=== PATIENT | male | born 1975 | race Caucasian/White ===

== ENCOUNTER 2017-02-22 16:35 | Emergency (ER) | payer BC ==
[2017-02-22] MEDS ORDERED: NS 0.9% 1000 ML* 1,000 ML IV ONE (19:40)
--- NOTE | 2017-02-22 20:22 | ED ---
Chacorta Marquez Billy, scribed for Clayton Carlson MD on 02/22/17 at 1937 . Abdominal Pain/Male - HPI Summary HPI Summary: This patient is a 41 year-old male coming to [facility] for evaluation of intermittent RLQ pain since 1430 today. He states that the pain began suddenly after a BM, and is worse with walking. Pain radiated from the RLQ to the groin. He states that the last episode of pain was at 1800, and that it has improved significantly since then. Patient also states that he felt like he had to urinate today but was not urinating as much as usual. He denies history of kidney stones. PSHx is significant for appendectomy in 2010. - History of Current Complaint Chief Complaint: EDAbdPain Stated Complaint: ABD PAIN Time Seen by Provider: 02/22/17 19:32 Hx Obtained From: Patient Onset/Duration: Sudden Onset, Lasting Hours Timing: Intermittent Severity Initially: Moderate Severity Currently: Moderate Pain Intensity: 7 Pain Scale Used: 0-10 Numeric Location: Discrete At: RLQ Radiates: Yes Radiates to: Other - Groin Aggravating Factor(s): Other: - Walking Alleviating Factor(s): Nothing Associated Signs And Symptoms: Positive: Urinary Symptoms. Negative: Nausea, Vomiting, Diarrhea - Allergies/Home Medications Allergies/Adverse Reactions: Allergies Allergy/AdvReac Type Severity Reaction Status Date / Time No Known Allergies Allergy Verified 03/08/13 07:23 PMH/Surg Hx/FS Hx/Imm Hx GI History: Reports: Other GI Disorders - Appendicitis History: Denies: Hx Kidney Stones Sensory History: Denies: Hx Deafness - Surgical History Surgery Procedure, Year, and Place: appendectomy 2011 Infectious Disease History: Denies: Traveled Outside the [place] in Last 30 Days - Family History Family History: There is no family history of IBS. - Social History Alcohol Use: Occasionally Hx Substance Use: No Substance Use Type: Reports: None Hx Tobacco Use: No Smoking Status (MU): Never Smoked Tobacco Review of Systems Negative: Fever Positive: Abdominal Pain. Negative: Vomiting, Diarrhea, Nausea Genitourinary: Other - See HPI All Other Systems Reviewed And Are Negative: Yes Physical Exam Triage Information Reviewed: Yes Vital Signs On Initial Exam: Initial Vitals Temp Pulse Resp BP Pulse Ox 98.1 F 53 18 155/96 100 02/22/17 16:40 02/22/17 16:40 02/22/17 16:40 02/22/17 16:40 02/22/17 16:40 Vital Signs Reviewed: Yes Appearance: Positive: Well-Appearing, Pain Distress - moderate discomfort Skin: Positive: Warm Head/Face: Positive: Normal Head/Face Inspection Eyes: Positive: CRISS ENT: Positive: Hearing grossly normal Neck: Positive: Supple Respiratory/Lung Sounds: Positive: Clear to Auscultation, Breath Sounds Present Cardiovascular: Positive: RRR Abdomen Description: Positive: Nontender, No Organomegaly, Soft. Negative: CVA Tenderness (R), CVA Tenderness (L) Bowel Sounds: Positive: Present Musculoskeletal: Positive: Strength/ROM Intact Neurological: Positive: Sensory/Motor Intact, Alert, Oriented to Person Place, Time Psychiatric: Positive: Affect/Mood Appropriate Diagnostics - Vital Signs Vital Signs Temp Pulse Resp BP Pulse Ox 02/22/17 16:40 98.1 F 53 18 155/96 100 - Laboratory Result Diagrams: 02/22/17 20:08 02/22/17 20:08 Lab Statement: Any lab studies that have been ordered have been reviewed, and results considered in the medical decision making process. - CT abd/pel CT Interpretation Completed By: Radiologist - 1. THERE IS A 2.5 X 5 MM CALCULUS IN THE DISTAL RIGHT URETER CAUSING [id number] HYDRONEPHROSIS. 2. HEPATIC STEATOSIS. Re-Evaluation - Re-Evaluation First Eval Change: Improved Abdominal Pain Fem Course/Dx - Diagnoses Provider Diagnoses: Renal colic Discharge - Discharge Plan Condition: Improved Disposition: HOME Prescriptions: Tamsulosin CAP* [Flomax CAP*] 0.4 mg PO DAILY #7 cap Patient Education Materials: Renal Colic (ED) Referrals: [facility] [Outside] Buck Meadows MD [Medical Doctor] - The documentation as recorded by the Chacorta phillips Billy accurately reflects the service I personally performed and the decisions made by me, Clayton Carlson MD.
--- NOTE | 2017-02-22 20:28 | RAD ---
INDICATION: Right-sided abdominal pain. History of prior appendectomy. COMPARISON: Comparison is made with a prior CT of the abdomen and pelvis from May 23, 2011. TECHNIQUE: A CT scan of the abdomen and pelvis was performed without intravenous or oral contrast. Contiguous axial sections were obtained from the lung bases through the symphysis pubis. Images were reconstructed in the coronal and sagittal planes. FINDINGS: There is minimal subsegmental atelectasis at the right lung base. No pleural effusion is present. The liver and spleen are normal in size. There is fatty infiltration of the liver with relative sparing of the left hepatic lobe. No other focal abnormalities are seen. The gallbladder appears contracted. No calcified gallstones are noted. The pancreas appears to be within normal limits. The adrenal glands and kidneys are normal in size. No renal calculi are seen. There is dilatation of the right renal calyces pelvis and ureter to the level of a 2.5 x 5.0 mm calculus in the distal right ureter just proximal to ureterovesical junction. This is causing mild to moderate hydronephrosis. The aorta is normal in caliber without significant calcific plaque. No significant enlarged retroperitoneal lymph nodes are seen. The stomach, small and large bowel appear nondistended. There is debris within the stomach. Surgical clips are noted along the medial aspect of the cecum consistent with the patient's history of a prior appendectomy. There is no evidence for diverticulitis or colitis. No free intraperitoneal air or fluid is seen. No significant focal osseous abnormality is seen. IMPRESSION: 1. THERE IS A 2.5 X 5 MM CALCULUS IN THE DISTAL RIGHT URETER CAUSING [id number] HYDRONEPHROSIS. 2. HEPATIC STEATOSIS.
[2017-02-22 20:52] LABS: Hematocrit 45 % (42-52); Hemoglobin 15.1 g/dl (14.0-18.0); Mean Corpuscular HGB Conc 34 g/dl (31-36); Mean Corpuscular Hemoglobin 29 pg (27-31); Mean Corpuscular Volume 85 fL (80-94); Mean Platelet Volume 8 um3 (7.4-10.4); Red Blood Count 5.26 10^6/ul (4.0-5.4); Red Cell Distribution Width 14 % (10.5-15); White Blood Count 10.9 10^3/ul (3.5-10.8)
[2017-02-22] MEDS ORDERED: Tamsulosin CAP* 0.4 MG PO ONE (21:04)
[2017-02-22 21:09] VITALS: BP 131/73
[2017-02-22 21:09] LABS: Albumin 4.1 g/dL (3.2-5.2); BUN/Creatinine Ratio 15.3 (8-20); C Reactive Protein 1.4 mg/L (< 5.00); Calcium 9.3 mg/dL (8.6-10.3); EGFR African American 87.5 (>60); Globulin 2.6 g/dL (2-4); Magnesium 2.2 mg/dL (1.9-2.7); Potassium 3.7 mmol/L (3.5-5.0); Total Bilirubin 0.6 mg/dL (0.2-1.0); Total Protein 6.7 g/dL (6.4-8.9)
== END 2017-02-22 21:40 | disposition home or self-care (01) ==
LOC: ED 16:35
DX: N23 Unspecified renal colic (principal); R10.31 Right lower quadrant pain
CPT/HCPCS: 36415; 74176; 80053; 83605; 83690; 83735; 85025; 86140; 99283

== ENCOUNTER 2017-04-21 08:45 | Emergency (ER) | payer BC ==
[2017-04-21 09:08] VITALS: BP 122/79
--- NOTE | 2017-04-21 09:16 | UC ---
Lower Extremity/Ankle HPI - HPI Summary HPI Summary: 42 YO MALE WITH LEFT SECOND TOE PAIN AFTER AVOIDING A HORSE JAMMED TOE NOW BRUISED AND PAINFUL WITH WT BEARING - History of Current Complaint Chief Complaint: UCLowerExtremity Stated Complaint: TOE INJURY Time Seen by Provider: 04/21/17 09:01 Hx Obtained From: Patient Onset/Duration: Sudden Onset Severity Initially: Moderate Severity Currently: Mild Pain Intensity: 4 Pain Scale Used: 0-10 Numeric Aggravating Factor(s): Ambulation Alleviating Factor(s): Rest, Elevation Able to Bear Weight: Yes - Allergies/Home Medications Allergies/Adverse Reactions: Allergies Allergy/AdvReac Type Severity Reaction Status Date / Time No Known Allergies Allergy Verified 03/08/13 07:23 Home Medications: Home Medications Cetirizine* [ZyrTEC 10 MG TAB*] 10 mg PO DAILY 04/21/17 [History Confirmed 04/21] PMH/Surg Hx/FS Hx/Imm Hx Previously Healthy: Yes GI/ History: Kidney Stones - Surgical History Surgical History: Yes Surgery Procedure, Year, and Place: appendectomy 2010 - Family History Known Family History: Positive: Other - NO FHx OF KIDNEY STONES Negative: Cardiac Disease, Hypertension, Diabetes Family History: There is no family history of IBS. - Social History Alcohol Use: Occasionally Substance Use Type: None Smoking Status (MU): Never Smoked Tobacco Review of Systems Constitutional: Negative Skin: Bruising Eyes: Negative ENT: Negative Respiratory: Negative Cardiovascular: Negative Gastrointestinal: Negative Genitourinary: Negative Motor: Negative Neurovascular: Negative Musculoskeletal: Arthralgia Neurological: Negative Psychological: Negative All Other Systems Reviewed And Are Negative: Yes Physical Exam Triage Information Reviewed: Yes Appearance: Well-Appearing, No Pain Distress, Well-Nourished Vital Signs: Initial Vital Signs Temp 98.8 F 04/21/17 08:48 Pulse 63 04/21/17 08:48 Resp 18 04/21/17 08:48 BP 122/79 04/21/17 08:48 Pulse Ox 98 04/21/17 08:48 Vital Signs Reviewed: Yes Eyes: Positive: Conjunctiva Clear ENT: Positive: Hearing grossly normal. Negative: Nasal congestion, Nasal drainage, Trismus, Muffled/hoarse voice Neck: Positive: Supple, Nontender Respiratory: Positive: Lungs clear, Normal breath sounds, No respiratory distress, No accessory muscle use Abdomen Description: Positive: Nontender, No Organomegaly Musculoskeletal: Positive: Other: - SEE IMAGE Neurological: Positive: Alert Psychological Exam: Normal Lower Extremity Course/Dx - Course Course Of Treatment: TOES ALEJANDRA TAPED BY ME - Differential Dx/Diagnosis Provider Diagnoses: LEFT SECOND TOE FRACTURE (CLINICALLY) Discharge - Discharge Plan Condition: Stable Disposition: HOME Patient Education Materials: Toe Fracture (ED) Referrals: Hiren Ritter MD [Primary Care Provider] - If Needed (RECHECK IN 3 WEEKS IF UNABLE BEAR WT COMFORTABLE IN YOUR REGULAR FOOTWARE) Additional Instructions: ADVIL OR ALEVE IF NEEDED FOR PAIN ALEJANDRA TAPE TOES POST OP SHOE Images Feet (Multiple View): 1 - SWOLLEN/TENDER AND SLIGHT LATERAL DISPLACEMENT
== END 2017-04-21 09:20 | disposition home or self-care (01) ==
LOC: UCEAST 08:45
DX: S92.505A Nondisplaced unspecified fracture of left lesser toe(s), initial encounter for closed fracture (principal); W23.0XXA Caught, crushed, jammed, or pinched between moving objects, initial encounter; Y93.9 Activity, unspecified; Y92.9 Unspecified place or not applicable; Z87.442 Personal history of urinary calculi
CPT/HCPCS: 99213; G0463